=== PATIENT | female | born 1950 | race Caucasian/White ===

== ENCOUNTER → 2022-07-19 | Outpatient (CLI) | payer MEDICARE, BC ==
[~2022-07-19] MED LIST: ATOR80TA59 PO; BAYE81TA10 PO; CELE1CAP9 PO; DULO1CAP6 PO; HYDR-3713 PO; ISOS5TA PO; LISI10TA24 PO; METF500T13 PO; METO50TA7 PO; PANT40TA29 PO; VITMTA PO; ZOLP12.518 PO
== END ==
LOC: M LABSMTC 10:59
PROVIDERS: ATTEND Anesthesiology
DX: Z01.812 Encounter for preprocedural laboratory examination (principal); Z11.52 Encounter for screening for COVID-19

== ENCOUNTER 2022-07-24 12:15 | Day surgery (SDC) | payer MEDICARE, BC ==
[~2022-07-24] VITALS: Ht 165.1 cm; Wt 101.2 kg
[~2022-07-24 12:15] MED LIST changes: +BSS IRRIG/VANCO(10MG)/TOBRA(5MG)/EPINEPH(1:1000-0.5CC)500ML BAG-ORONLY IR ONE; +CEFUROXIME 1MG/0.1ML INTRACAMERAL INJ As Ordered ONE; +CYCLOPENTOLATE 1% OPHTH SOLN 2ML BTL OD SCH; +LIDOCAINE 1% 1ML PF SYRINGE (OR EYE CASES) As Ordered ONE; +LIDOCAINE 3.5 % 1ML OPHTH TOPICAL GEL OU ONE; +MIDAZOLAM INJ 2MG/2ML VIAL As Ordered ONE; +OFLOXACIN 0.3 % (OCUFLOX) OPTH SOL 5ML OD ONE; +PHENYLEPHRINE 10% OPHTH SOL 5ML OD PRN; +PHENYLEPHRINE 2.5% OPHTH SOL 2ML OD SCH; +TROPICAMIDE 1% OPHTH SOLN 15ML OD SCH
[2022-07-24] MEDS ORDERED: MIDAZOLAM INJ 2MG/2ML VIAL As Ordered ONE (13:11)
[2022-07-24] MEDS ORDERED: ACETYLCHOLINE OPHTH SOLN 1% 2ML (MIOCHOL-E) As Ordered ONE (13:15)
[2022-07-24] MEDS ORDERED: fentaNYL 100 MCG/2 ML INJECTION As Ordered ONE (13:15)
[2022-07-24 13:28] VITALS: BP 139/72
== END 2022-07-24 13:56 | disposition home or self-care (01) ==
LOC: M SDC 12:15 → EDUNIT# 15:45
PROVIDERS: ATTEND Ophthalmology
DX: H25.11 Age-related nuclear cataract, right eye (principal); Z53.8 Procedure and treatment not carried out for other reasons
CPT/HCPCS: 66984; J0697; J2250; J3010

== ENCOUNTER → 2022-10-26 | Outpatient (CLI) | payer MEDICARE, BC ==
[~2022-10-26] MED LIST changes: -BSS IRRIG/VANCO(10MG)/TOBRA(5MG)/EPINEPH(1:1000-0.5CC)500ML BAG-ORONLY IR ONE; -CEFUROXIME 1MG/0.1ML INTRACAMERAL INJ As Ordered ONE; -CYCLOPENTOLATE 1% OPHTH SOLN 2ML BTL OD SCH; -LIDOCAINE 1% 1ML PF SYRINGE (OR EYE CASES) As Ordered ONE; -LIDOCAINE 3.5 % 1ML OPHTH TOPICAL GEL OU ONE; -MIDAZOLAM INJ 2MG/2ML VIAL As Ordered ONE; -OFLOXACIN 0.3 % (OCUFLOX) OPTH SOL 5ML OD ONE; -PHENYLEPHRINE 10% OPHTH SOL 5ML OD PRN; -PHENYLEPHRINE 2.5% OPHTH SOL 2ML OD SCH; -TROPICAMIDE 1% OPHTH SOLN 15ML OD SCH
== END ==
LOC: M LABSMTC 10:28
PROVIDERS: ATTEND Anesthesiology
DX: Z01.812 Encounter for preprocedural laboratory examination (principal); Z20.822 Contact with and (suspected) exposure to COVID-19

== ENCOUNTER 2022-10-30 10:27 | Day surgery (SDC) | payer MEDICARE, BC ==
[~2022-10-30] VITALS: Ht 165.1 cm; Wt 107.0 kg
[~2022-10-30 10:27] MED LIST changes: +BSS IRRIG/VANCO(10MG)/TOBRA(5MG)/EPINEPH(1:1000-0.5CC)500ML BAG-ORONLY IR ONE; +CEFUROXIME 1MG/0.1ML INTRACAMERAL INJ As Ordered ONE; +CYCLOPENTOLATE 1% OPHTH SOLN 2ML BTL OD SCH; +LIDOCAINE 1% SDV 5ML VIAL As Ordered ONE; +LIDOCAINE 3.5 % 1ML OPHTH TOPICAL GEL OU ONE; +OFLOXACIN 0.3 % (OCUFLOX) OPTH SOL 5ML OD ONE; +PHENYLEPHRINE 10% OPHTH SOL 5ML OD PRN; +PHENYLEPHRINE 2.5% OPHTH SOL 2ML OD SCH; +TROPICAMIDE 1% OPHTH SOLN 15ML OD SCH
[2022-10-30] MEDS ORDERED: fentaNYL 100 MCG/2 ML INJECTION As Ordered ONE (10:50)
[2022-10-30] MEDS ORDERED: ONDANSETRON 4MG 2ML VIAL As Ordered ONE (10:50)
[2022-10-30] MEDS ORDERED: LIDOCAINE 2% 100MG/5ML SDV (FOR ANES.) As Ordered ONE (10:50)
[2022-10-30] MEDS ORDERED: propofoL 200 MG/20 ML VIAL As Ordered ONE (10:50)
[2022-10-30] MEDS ORDERED: ETOMIDATE INJ 20MG/10ML VIAL As Ordered ONE (11:41)
[2022-10-30] MEDS ORDERED: SUCCINYLCHOLINE 100MG/5ML SYRINGE As Ordered ONE (11:41)
[2022-10-30 13:35] VITALS: BP 144/71
== END 2022-10-30 13:53 | disposition home or self-care (01) ==
LOC: M SDC 10:27
PROVIDERS: ATTEND Ophthalmology
DX: H25.11 Age-related nuclear cataract, right eye (principal); H57.03 Miosis; I10 Essential (primary) hypertension; E11.9 Type 2 diabetes mellitus without complications; E78.00 Pure hypercholesterolemia, unspecified; K21.9 Gastro-esophageal reflux disease without esophagitis; T88.59XA Other complications of anesthesia, initial encounter; Z79.82 Long term (current) use of aspirin; Z79.84 Long term (current) use of oral hypoglycemic drugs; Z79.899 Other long term (current) drug therapy; Z98.51 Tubal ligation status; Z96.653 Presence of artificial knee joint, bilateral; Z90.710 Acquired absence of both cervix and uterus
CPT/HCPCS: 66982; J0330; J0697; J2405; J3010; V2632

== ENCOUNTER → 2022-12-15 | Outpatient (CLI) | payer MEDICARE, BC ==
[~2022-12-15] MED LIST changes: -BSS IRRIG/VANCO(10MG)/TOBRA(5MG)/EPINEPH(1:1000-0.5CC)500ML BAG-ORONLY IR ONE; +CALCTAB41 PO; -CEFUROXIME 1MG/0.1ML INTRACAMERAL INJ As Ordered ONE; -CYCLOPENTOLATE 1% OPHTH SOLN 2ML BTL OD SCH; -LIDOCAINE 1% SDV 5ML VIAL As Ordered ONE; -LIDOCAINE 3.5 % 1ML OPHTH TOPICAL GEL OU ONE; -OFLOXACIN 0.3 % (OCUFLOX) OPTH SOL 5ML OD ONE; -PHENYLEPHRINE 10% OPHTH SOL 5ML OD PRN; -PHENYLEPHRINE 2.5% OPHTH SOL 2ML OD SCH; -TROPICAMIDE 1% OPHTH SOLN 15ML OD SCH
== END ==
LOC: M LABSMTC 10:30
PROVIDERS: ATTEND Anesthesiology
DX: Z11.52 Encounter for screening for COVID-19 (principal)

== ENCOUNTER 2022-12-20 08:27 | Day surgery (SDC) | payer MEDICARE, BC ==
[~2022-12-20] VITALS: Ht 165.1 cm; Wt 102.1 kg
[~2022-12-20 08:27] MED LIST changes: +BSS IRRIG/VANCO(10MG)/TOBRA(5MG)/EPINEPH(1:1000-0.5CC)500ML BAG-ORONLY IR ONE; +CEFUROXIME 1MG/0.1ML INTRACAMERAL INJ As Ordered ONE; +LIDOCAINE 1% SDV 5ML VIAL As Ordered ONE; +LIDOCAINE 2% 100MG/5ML SDV (FOR ANES.) As Ordered ONE; +LIDOCAINE 3.5 % 1ML OPHTH TOPICAL GEL OU ONE; +MIDAZOLAM INJ 2MG/2ML VIAL As Ordered ONE; +OFLOXACIN 0.3 % (OCUFLOX) OPTH SOL 5ML OS ONE; +ONDANSETRON 4MG 2ML VIAL As Ordered ONE; +PHENYLEPHRINE 10% OPHTH SOL 5ML OS PRN; +fentaNYL 100 MCG/2 ML INJECTION As Ordered ONE; +propofoL 200 MG/20 ML VIAL As Ordered ONE
[2022-12-20] MEDS: TROPICAMIDE 1% OPHTH SOLN 15ML OS SCH ×2 (08:59→09:00)
[2022-12-20] MEDS: CYCLOPENTOLATE 1% OPHTH SOLN 2ML BTL OS SCH ×2 (08:59→09:00)
[2022-12-20] MEDS: PHENYLEPHRINE 2.5% OPHTH SOL 2ML OS SCH ×2 (08:59→09:00)
[2022-12-20] MEDS ORDERED: ePHEDrine SULFATE 25 MG/5 ML(5MG/ML) SYRINGE As Ordered ONE (10:13)
[2022-12-20] MEDS ORDERED: propofoL 200 MG/20 ML VIAL As Ordered ONE (10:17)
[2022-12-20] MEDS ORDERED: ONDANSETRON 4MG 2ML VIAL IV PRN (10:25)
[2022-12-20 11:46] VITALS: BP 158/72
== END 2022-12-20 12:07 | disposition home or self-care (01) ==
LOC: M SDC 08:27
PROVIDERS: ATTEND Ophthalmology
DX: H25.12 Age-related nuclear cataract, left eye (principal); I10 Essential (primary) hypertension; E78.5 Hyperlipidemia, unspecified; E11.9 Type 2 diabetes mellitus without complications; Z98.51 Tubal ligation status; Z90.710 Acquired absence of both cervix and uterus; Z90.89 Acquired absence of other organs; Z79.899 Other long term (current) drug therapy
CPT/HCPCS: 66984; J0697; J1100; J2250; J2405; J3010; V2632